=== PATIENT | male | born 1995 | race American Indian/Alaskan Native ===

== ENCOUNTER 2017-01-14 12:38 | Emergency (ER) | payer SELFPAY ==
--- NOTE | 2017-01-14 18:35 | Emergency Department Report ---
Abscess Boil HPI - HPI Chief Complaint: Skin/Abscess/Foreign Body Stated Complaint: LEFT EAR BOIL Duration: 2 Days Location: Other (left ear) Severity: Moderate History: Yes Pain Home Medications: Previous Rx's Medication Instructions Recorded Last Taken Type Cephalexin [Keflex] 500 mg PO DAILY #40 capsule 01/14/17 Unknown Rx Allergies/Adverse Reactions: Allergies Allergy/AdvReac Type Severity Reaction Status Date / Time No Known Allergies Allergy Unverified 01/14/17 13:38 ED Review of Systems ROS: Stated complaint: LEFT EAR BOIL Other details as noted in HPI Constitutional: denies: chills, fever Eyes: eye pain ENT: denies: ear pain, throat pain Respiratory: denies: cough, shortness of breath, wheezing Cardiovascular: denies: chest pain, palpitations Endocrine: no symptoms reported ED Past Medical Hx - Medications Home Medications: Home Medications Medication Instructions Recorded Confirmed Last Taken Type Cephalexin [Keflex] 500 mg PO DAILY #40 capsule 01/14/17 Unknown Rx ED Abscess Boil Physical Exam - Exam General: Vital signs noted. No distress. Alert and acting appropriately. Size: 1 cm Exam: Yes Tenderness, Yes Fluctuance, Yes Normal Neurologic Exam, Yes Normal Circulation, No Surrounding Cellulites/Erythema, No Lymphangitis, No Crepitation , No Heart Murmur I & D Note - I & D Note I & D Note: Site was cleaned with Betadine and lidocaine 3 mL injected in the center of the abscess. 16 blade was use to make a small incision. Purulent discharge as well as sanguinous discharge with expressive and the abscess. Patient required no packing. ED Course Vital Signs 01/14/17 13:39 Temperature 98 F Pulse Rate 91 H Respiratory 16 Rate Blood Pressure 131/71 O2 Sat by Pulse 100 Oximetry Critical care attestation.: If time is entered above; I have spent that time in minutes in the direct care of this critically ill patient, excluding procedure time. ED Medical Decision Making - Medical Decision Making Patient evaluated by this provider in fast track. Discussed with patient that we will place him on antibiotics for 10 days. Discussed with patient to follow-up in 3-5 days for evaluation of abscess. The patient to change dressing daily. Patient verbalized understanding ED Disposition Clinical Impression: Preauricular cyst Disposition: DISCHARGED TO HOME OR SELFCARE Is pt being admited?: No Does the pt Need Aspirin: No Condition: Stable Instructions: Abscess Incision and Drainage (ED) Additional Instructions: Change bandage daily. Complete all antibiotics as prescribed. He can take Tylenol or Motrin for pain management. Please return back to the emergency room within 3-5 days for recheck. Prescriptions: Cephalexin [Keflex] 500 mg PO DAILY #40 capsule Referrals: PRIMARY CARE, [Primary Care Provider] - 3-5 Days Forms: Work/School Release Form(ED)
[2017-01-14 18:47] VITALS: BP 130/70
== END 2017-01-14 18:46 | disposition home or self-care (01) ==
LOC: ED 12:38
DX: Q18.1 Preauricular sinus and cyst (principal)

== ENCOUNTER 2019-04-02 17:46 | Emergency (ER) | payer MEDICAID ==
[2019-04-02 18:10] VITALS: BP 125/68
[2019-04-02] MEDS ORDERED: ULTRAM PO ONE (20:24)
--- NOTE | 2019-04-02 21:18 | Emergency Department Report ---
Abscess Boil HPI - HPI Chief Complaint: Earache Stated Complaint: LT EAR INFECTION Time Seen by Provider: 04/02/19 20:24 Duration: 3 Days Location: Other (left facial abscess) Severity: Mild History: Yes Fever, Yes Pain, Yes Purulent Drainage, No Numbness, No Foreign Body, No Previous History, No Insect Bite HPI: pt presents for left facial abscess , with pain x 3 days Home Medications: Previous Rx's Medication Instructions Recorded Last Taken Type Cephalexin [Keflex] 500 mg PO DAILY #40 capsule 01/14/17 Unknown Rx Clindamycin [Clindamycin CAP] 300 mg PO Q8H 10 Days #30 cap 04/02/19 Unknown Rx traMADol [Ultram] 50 mg PO Q6HR PRN #12 tablet 04/02/19 Unknown Rx Allergies/Adverse Reactions: Allergies Allergy/AdvReac Type Severity Reaction Status Date / Time No Known Allergies Allergy Unverified 01/14/17 13:38 ED Review of Systems ROS: Stated complaint: LT EAR INFECTION Other details as noted in HPI Constitutional: denies: chills, fever Eyes: denies: eye pain, eye discharge, vision change ENT: denies: ear pain, throat pain Respiratory: denies: cough, shortness of breath, wheezing Cardiovascular: as per HPI Endocrine: no symptoms reported Gastrointestinal: denies: abdominal pain, nausea, diarrhea Genitourinary: denies: urgency, dysuria Musculoskeletal: denies: back pain, joint swelling, arthralgia Skin: lesions (left facial abscess ) Neurological: denies: headache, weakness, paresthesias Psychiatric: denies: anxiety, depression Hematological/Lymphatic: denies: easy bleeding, easy bruising ED Past Medical Hx - Past Medical History Previous Medical History?: Yes Additional medical history: Cerebral Palsy - Surgical History Past Surgical History?: No - Social History Smoking Status: Never Smoker Substance Use Type: None - Medications Home Medications: Home Medications Medication Instructions Recorded Confirmed Last Taken Type Cephalexin [Keflex] 500 mg PO DAILY #40 capsule 01/14/17 Unknown Rx Clindamycin [Clindamycin CAP] 300 mg PO Q8H 10 Days #30 cap 04/02/19 Unknown Rx traMADol [Ultram] 50 mg PO Q6HR PRN #12 tablet 04/02/19 Unknown Rx ED Abscess Boil Physical Exam - Exam General: Vital signs noted. No distress. Alert and acting appropriately. Size: 1 cm Exam: Yes Tenderness, Yes Fluctuance, Yes Surrounding Cellulites/Erythema, Yes Normal Neurologic Exam, Yes Normal Circulation, No Lymphangitis, No Crepitation, No Heart Murmur I & D Note - I & D Note I & D Note: left facial absces site cleaned with betadins solution , anesthesia 1% lidocaine , incision with 11 blade scaple x 1, moderate purulent drainage wound irrigated with 10 cc sterile saline all bleeding is controlled pt tolerated procedure with minimal distress. ED Course Vital Signs 04/02/19 04/02/19 18:08 20:29 Temperature 98.0 F Pulse Rate 85 Respiratory 16 18 Rate Blood Pressure 125/68 O2 Sat by Pulse 99 Oximetry Critical care attestation.: If time is entered above; I have spent that time in minutes in the direct care of this critically ill patient, excluding procedure time. ED Medical Decision Making - Medical Decision Making pt for I&D of acbscess see procedure note all bleeding is controlled pt t olerated procedure with minimal distress dc'd to home in stable conditions at this time. pt will follow up with pcp in 2-3 days. ED Disposition Clinical Impression: Abscess Disposition: DC-01 TO HOME OR SELFCARE Is pt being admited?: No Does the pt Need Aspirin: No Condition: Stable Instructions: Abscess (ED) Prescriptions: Clindamycin [Clindamycin CAP] 300 mg PO Q8H 10 Days #30 cap traMADol [Ultram] 50 mg PO Q6HR PRN #12 tablet PRN Reason: Pain Referrals: MERCEDES AMADOR MD [Staff Physician] - 3-5 Days Forms: Work/School Release Form(ED)
== END 2019-04-02 21:37 | disposition home or self-care (01) ==
LOC: ED 17:46
DX: L02.01 Cutaneous abscess of face (principal); Z79.899 Other long term (current) drug therapy
CPT/HCPCS: 99282

== ENCOUNTER 2021-02-12 18:30 | Emergency (ER) | payer MEDICAID ==
[2021-02-12 21:43] VITALS: BP 104/67
--- NOTE | 2021-02-12 21:51 | Emergency Department Report ---
ED General Adult HPI - General Chief complaint: Skin/Abscess/Foreign Body Stated complaint: BOIL ON EAR Time Seen by Provider: 02/12/21 21:31 Source: patient Mode of arrival: Ambulatory Limitations: No Limitations - History of Present Illness Initial comments: 25-year-old male patient with history of cerebral palsy presents to the emergency department with complaints of painful swelling under his left ear starting 2 days ago. Patient states he has had abscesses in this area several times in the past. He has never seen a print producer for this recurrent issue. Symptoms are consistent with prior abscesses. No preceding trauma. Denies fever, chills, ear pain, sore throat, vision changes, neck stiffness. Denies all other complaints at this time. - Related Data Previous Rx's Medication Instructions Recorded Last Taken Type cephALEXin [Keflex] 500 mg PO DAILY #40 capsule 01/14/17 Unknown Rx Clindamycin [Clindamycin CAP] 300 mg PO Q8H 10 Days #30 cap 04/02/19 Unknown Rx traMADoL [Ultram] 50 mg PO Q6HR PRN #12 tablet 04/02/19 Unknown Rx cephALEXin [Keflex] 500 mg PO Q8HR 5 Days cap 02/12/21 Unknown Rx Allergies Allergy/AdvReac Type Severity Reaction Status Date / Time No Known Allergies Allergy Verified 02/12/21 21:54 ED Review of Systems ROS: Stated complaint: BOIL ON EAR Other details as noted in HPI Other: GENERAL: Negative for fever. CARDIOVASCULAR: Negative for chest pain. PULMONARY: Negative for shortness of breath. GASTROINTESTINAL: Negative for abdominal pain. MUSCULOSKELETAL: Negative for back pain. NEUROLOGICAL: Negative for headache. INTEGUMENTARY: Positive for painful swelling. ED Past Medical Hx - Past Medical History Previous Medical History?: Yes Additional medical history: Cerebral Palsy - Surgical History Past Surgical History?: No - Social History Smoking Status: Never Smoker Substance Use Type: None - Medications Home Medications: Home Medications Medication Instructions Recorded Confirmed Last Taken Type cephALEXin [Keflex] 500 mg PO DAILY #40 capsule 01/14/17 Unknown Rx Clindamycin [Clindamycin CAP] 300 mg PO Q8H 10 Days #30 cap 04/02/19 Unknown Rx traMADoL [Ultram] 50 mg PO Q6HR PRN #12 tablet 04/02/19 Unknown Rx cephALEXin [Keflex] 500 mg PO Q8HR 5 Days cap 02/12/21 Unknown Rx ED Physical Exam - General Limitations: No Limitations - Other Other exam information: General: Awake, appropriately interactive, no acute distress. Neck: Supple. Full range of motion intact. Cardiovascular: Normal peripheral perfusion. Pulmonary: No respiratory distress. Patient is speaking normally without use of accessory muscles. Skin: There is a small tender fluctuant mass to the angle of the left mandible, just inferior to the ear. Minimal overlying erythema. Neurological: No facial asymmetry. Speech is clear. Follows commands. Patient is alert and oriented. Musculoskeletal: Moves all four extremities spontaneously with normal range of motion. Psych: Cooperative. Appropriate mood and affect. ED Course Vital Signs 02/12/21 20:06 Temperature 98.9 F Pulse Rate 75 Respiratory 18 Rate Blood Pressure 104/67 O2 Sat by Pulse 99 Oximetry - I & D Face Type of Procedure: Simple Site: angle of mandible - left Blade Size: 11 I & D Procedure: betadine prep, sterile drapes applied Progress: Verbal consent was obtained from the patient. The site was identified. The patient was placed in the right lateral decubitus position. The area was prepp ed and draped in sterile fashion. The area was cleansed with saline and Betadine. Local anesthetic was used. 2 mL of lidocaine 1% with epinephrine were injected along the overlying tissue. A #11 blade was used to make a small incision. Approximately 10 mL of thick purulent matter was expressed from the area. The cavity was explored to its base with hemostats. Wound dressing placed. Patient tolerated well without complications. ED Medical Decision Making - Medical Decision Making Differential diagnosis including but not limited to: abscess, sebaceous cyst, cellulitis, folliculitis Patient presents to the emergency department with complaints of painful swelling to the left side of his face starting 2 days ago. Patient states this specific area becomes painful and swollen at least once a year, required incision and drainage. Patient has never seen an outside provider for this recurrent issue. Incision and drainage performed without complications. See procedure note for details. History and exam findings are suggestive of infected epidermal cyst. Patient will be discharged home with Keflex and referred to print producer for definitive management. Patient expressed understanding and is agreeable to plan of care. Wound care precautions discussed. Strict return precautions provided. Repeat exam is unremarkable and benign. History, exam, diagnostic testing, and current condition do not suggest worrisome pathology to warrant further testing, continued ED treatment, admission, or surgical evaluation at this point. Given the low probability of a significant medical illness, it would be more likely to result in harm than benefit to perform further testing at this stage. Discussed findings, presumptive diagnosis, need for follow-up and specific signs/symptoms that should prompt immediate return to the emergency department. Instructions were explained in detail to the patient in addition to giving written discharge information. Patient expressed understanding and was given the opportunity to ask questions, all of which were satisfactorily answered prior to discharge home. Critical care attestation.: If time is entered above; I have spent that time in minutes in the direct care of this critically ill patient, excluding procedure time. ED Disposition Clinical Impression: Infected epidermoid cyst Disposition: TO HOME OR SELFCARE Is pt being admited?: No Does the pt Need Aspirin: No Condition: Stable Instructions: Skin Abscess Additional Instructions: Take Tylenol every 4 hours and Motrin every 8 hours as needed for pain. Take Keflex with food as directed. Increase your dietary intake of probiotic rich foods while taking this medication. Keep wound clean and covered. Change dressing daily. Apply warm compresses to the affected area at least 3 times per day. The area may continue to drain on its own. Do not forcefully attempt to express drainage from the area. Follow-up with print producer for definitive management. Call tomorrow to schedule an appointment. See referral information below. If you are unable to see the print producer, call primary care provider to schedule an appointment this week. See referral information below. Return to the emergency department immediately for new or worsening symptoms Prescriptions: cephALEXin [Keflex] 500 mg PO Q8HR 5 Days cap Referrals: CATHY BIRD MD [Staff Physician] - 3-5 Days DOREEN RIVERA MD [Staff Physician] - 3-5 Days [facility] [Outside] - 3-5 Days [facility] [Outside] - 3-5 Days [facility] [Outside] - 3-5 Days Time of Disposition: 23:11
[2021-02-12] MEDS ORDERED: LIDOCAINE 1%/EPINEPHRINE 1:100,000 VIAL (20 ML) INFILTRATI NR (22:00)
== END 2021-02-12 23:20 | disposition home or self-care (01) ==
LOC: ED 18:30
DX: L72.8 Other follicular cysts of the skin and subcutaneous tissue (principal); Z79.899 Other long term (current) drug therapy
CPT/HCPCS: 99282